=== PATIENT | male | born 1955 | race Hispanic/Latino ===

== ENCOUNTER 2018-07-12 18:45 | Emergency (ER) | payer OTHER | END 2018-07-12 21:33 | disposition home or self-care (01) | LOC: EDH 18:45 | DX: S40.012A Contusion of left shoulder, initial encounter (principal); W18.39XA Other fall on same level, initial encounter; Y93.01 Activity, walking, marching and hiking; Y92.098 Other place in other non-institutional residence as the place of occurrence of the external cause; Y99.8 Other external cause status | CPT/HCPCS: 73030; 73200 ==